=== PATIENT | female | born 1985 ===

== ENCOUNTER 2021-02-08 15:20 | Emergency (ER) | payer MEDICAID ==
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
[2021-02-08 22:22] LABS: Basophils % (Auto) 0.5 % (0.0-1.8); Eosinophils # (Auto) 0.1 K/mm3 (0.0-0.4); Eosinophils % (Auto) 0.8 % (0.0-4.3); Hematocrit 33.5 % (30.3-42.9); Lymphocytes # (Auto) 2.6 K/mm3 (1.2-5.4); Lymphocytes % (Auto) 28.9 % (13.4-35.0); Mean Corpuscular HGB Conc 33 % (30-34); Mean Corpuscular Volume 81 fl (79-97); Monocytes # (Auto) 0.6 K/mm3 (0.0-0.8); Monocytes % (Auto) 6.7 % (0.0-7.3); Platelet Count 197 K/mm3 (140-440); Red Blood Count 4.14 M/mm3 (3.65-5.03); Red Cell Distribution Width 15.4 % (13.2-15.2)
--- NOTE | 2021-02-08 22:27 | Cat Scan Report ---
CT head/brain wo con INDICATION / CLINICAL INFORMATION: 35 years Female; Syncope. TECHNIQUE: Routine CT head without contrast. All CT scans at this location are performed using CT dos e reduction for ALARA by means of automated exposure control. COMPARISON: None. FINDINGS: BRAIN / INTRACRANIAL CONTENTS: There is mild prominence of the ventricular system which is of indeter minate age on this single exam and correlation would be needed at. No definitive obstructing lesions are identified. There appear to be mild white matter changes along the frontal horns which may reflec t microvascular angiopathy. There does not appear to be significant edema along the more posterior po rtions of the lateral ventricles. There is no clear CT evidence of acute intracranial hemorrhage or s ignificant mass effect. ORBITS: No significant abnormality. SINUSES / MASTOIDS: No significant abnormality in the visualized paranasal sinuses or mastoid air larry ls. CRANIOCERVICAL JUNCTION: No significant abnormality. ADDITIONAL FINDINGS: None. IMPRESSION: 1. There is prominence of the ventricular system as a detailed above which is of indeterminate age an d unclear significance on this single exam and correlation would be needed at. 2. There are also mild periventricular white matter changes anteriorly which are nonspecific at. Ther e is no clear CT evidence of acute intracranial hemorrhage. Signer Name: Bartolo Otto MD Signed: 02/08/2021 10:22 PM Workstation Name: [id number]
[2021-02-08 22:40] LABS: Blood Urea Nitrogen 12 mg/dL (7-17); Calcium 8.6 mg/dL (8.4-10.2); Hemolysis Index 2
[2021-02-08 22:42] LABS: Alanine Aminotransferase 8 units/L (7-56); Albumin 3.8 g/dL (3.9-5)
[2021-02-08 22:50] LABS: BUN/Creatinine Ratio 17; Bilirubin,Direct < 0.2 mg/dL (0-0.2)
[2021-02-08 23:45] VITALS: BP 134/88
--- NOTE | 2021-02-12 11:10 | Electrocardiograph Report ---
[facility] Test Date: 2021-02-08 Test Time: 22:09:39 Pat Name: ANTHONY MCMAHON Department: Room: Gender: F Respiratory Coordinator: HUA : 1985 Requested By: KOMAL LIANG Order Number: [id number] Reading MD: Johny Breaux Measurements Intervals Brick Rate: 68 P: 30 WY: 152 QRS: -3 QRSD: 82 T: 21 QT: 414 QTc: 439 Interpretive Statements Sinus rhythm No previous ECG available for comparison Electronically Signed On 02-12-2021 11:09:57 EDT by Johny Breaux
== END 2021-02-08 23:45 | disposition home or self-care (01) ==
LOC: ED 15:20
DX: R55 Syncope and collapse (principal); R51.9 Headache, unspecified; Z98.890 Other specified postprocedural states
CPT/HCPCS: 36415; 70450; 80048; 80076; 84703; 85025; 93005